=== PATIENT | female | born 1950 | race Caucasian/White ===

== ENCOUNTER 2017-03-29 00:20 | Outpatient (CLI) | payer MEDICARE, BC | END 2017-03-29 00:21 | disposition critical access hospital (66) | LOC: EMS 00:20 | PROVIDERS: ATTEND Surgery | DX: S49.91XA Unspecified injury of right shoulder and upper arm, initial encounter (principal); W10.9XXA Fall (on) (from) unspecified stairs and steps, initial encounter; Y92.019 Unspecified place in single-family (private) house as the place of occurrence of the external cause | CPT/HCPCS: A0425; A0427 ==

== ENCOUNTER 2017-03-29 00:44 | Emergency (ER) | payer MEDICARE, BC ==
[2017-03-29] MEDS ORDERED: fentaNYL 100 MCG/2 ML VIAL ONE ×2 (02:09→02:47)
[2017-03-29] MEDS ORDERED: fentaNYL 100 MCG/2 ML VIAL IVP STA ×2 (02:10→02:50)
[2017-03-29] MEDS ORDERED: LORazepam 0.5 MG TABLET PO STA (02:14)
[2017-03-29] MEDS ORDERED: LORazepam 2 MG/ML SYRINGE ONE ×2 (02:16→02:47)
--- NOTE | 2017-03-29 02:19 | ED Physician Documentation ---
PD HPI UPPER EXT INJURY - Stated complaint Stated Complaint: SHOULDER PN/GLF - Chief complaint Chief Complaint: Trauma Ext - History obtained from History obtained from: Patient, Family, EMS - History of Present Illness Location: Right, Shoulder Type of injury: Fall Where injury occurred: Home Timing - onset: How many minutes ago (30) Timing - details: Abrupt onset Improved by: Immobilization Worsened by: Moving, Palpating Contributing factors: No: Anticoagulated, Prior ortho surgery Similar symptoms before: Has not had sx before Recently seen: Not recently seen - Additonal information Additional information: Patient is a 66 year old female who is presenting to the emergency department for shoulder pain after falling. patient was staying at a friends house that was unfamiliar to her. when patient got up to go to the bathroom she tripped and fell, landing on her right side hurting her shoulder. Patient is not on blood thinners and denies any loc. Review of Systems Constitutional: denies: Fever, Chills Eyes: denies: Loss of vision, Decreased vision Ears: denies: Ear pain, Drainage/discharge Nose: denies: Rhinorrhea / runny nose, Congestion, Epistaxis Throat: denies: Dental pain / toothache Cardiac: denies: Chest pain / pressure Respiratory: denies: Cough, Wheezing GI: denies: Abdominal Pain, Nausea, Vomiting : denies: Frequency, Hesitancy Skin: reports: Lesions, Abrasion (s). denies: Laceration (s) Musculoskeletal: reports: Extremity pain, Joint pain, Extremity swelling Neurologic: denies: Generalized weakness, Focal weakness, Numbness Psychiatric: denies: Depressed, Suicidal Immunocompromised: denies: Immunocompromised PD PAST MEDICAL HISTORY - Past Medical History Past Medical History: Yes Cardiovascular: Hypertension - Past Surgical History Past Surgical History: No - Present Medications Home Medications: Ambulatory Orders Medication Instructions Recorded Confirmed Atenolol 50 mg PO DAILY 03/29/17 03/29/17 - Allergies Allergies/Adverse Reactions: Allergies Allergy/AdvReac Type Severity Reaction Status Date / Time Sulfa (Sulfonamide Allergy Rash Verified 03/29/17 00:41 Antibiotics) - Social History Does the pt smoke?: No Smoking Status: Never smoker Does the pt drink ETOH?: Yes ETOH Use: Wine Does the pt have substance abuse?: No - Immunizations Immunizations are current?: Yes - POLST Patient has POLST: No PD ED PE NORMAL - Vitals Vital signs reviewed: Yes - HEENT HEENT: PERRL, Dentition benign - Neck Neck: Supple, no meningeal sign, No bony TTP - Cardiac Cardiac: RRR, No murmur - Respiratory Respiratory: No respiratory distress, Clear bilaterally - Abdomen Abdomen: Soft, Non tender, Other (obese) - Neuro Neuro: Alert and oriented X 3, Normal speech - Psych Psych: Normal mood, Normal affect PD ED PE EXPANDED - General General: Alert, In Pain - HEENT HEENT: Head injury (abrasion and hematoma right supra orbital area) - Extremities Extremities: Right shoulder (tenderness and deformity), Right elbow (ecchymosis , abrasion and swelling), Right forearm (tenderness and ecchymosis) Results - Vitals Vitals: Vital Signs - 24 hr 03/29/17 03/29/17 03/29/17 00:36 02:06 02:14 Temperature 37.2 C 36.1 C L Heart Rate 90 91 88 Respiratory 18 20 20 Rate Blood Pressure 156/87 H 164/88 H 164/88 H O2 Saturation 96 98 100 03/29/17 03/29/17 03/29/17 02:40 02:53 02:56 Temperature Heart Rate 75 76 69 Respiratory 20 18 16 Rate Blood Pressure 159/104 H 133/91 H 139/79 H O2 Saturation 96 97 98 03/29/17 03/29/17 03/29/17 03:03 03:06 03:16 Temperature Heart Rate 78 77 90 Respiratory 19 16 22 Rate Blood Pressure 147/80 H 139/78 H 149/85 H O2 Saturation 99 97 99 03/29/17 03/29/17 03/29/17 03:26 03:37 04:07 Temperature Heart Rate 95 96 94 Respiratory 19 23 14 Rate Blood Pressure 149/85 H 141/91 H 161/93 H O2 Saturation 100 100 100 Oxygen O2 Source Room air Oxygen Flow Rate 3 - Rads (name of study) forearm x-ray Radiology: Final report received (no acute fracture or dislocation) right elbow Radiology: Final report received (no acute fracture or dislocation) right shoulder Radiology: Final report received (anterior, inferior dislocation) right shoulder post Radiology: Final report received (reduced shoulder) Procedures - Reduction Body part reduced: Right, Shoulder Fracture or dislocation: Dislocation Anesthesia: Fentanyl, Other (ativan) Shoulder reduction technique: Scapular manipulation, Traction - counter tract Reduction aftercare: NV intact, Xray confirms reduction, Alignment improved, Sling, Patient tolerated well PD MEDICAL DECISION MAKING - ED course Complexity details: reviewed results, re-evaluated patient, considered differential, d/w patient, d/w family ED course: Patient was seen and examined at bedside. patient had been treated with 200mcg by ems. patient was sent for imaging. When patient returned from imaging patient was found to have a right dislocated shoulder. shoulder was reduced using fentanyl and ativan on the second attempt. patient tolerated treatment well. patient had no desaturation or drop in blood pressure. Patient required no further work up and was stable for discharge with outpatient follow up. Departure - Departure Disposition: 01 Home, Self Care Clinical Impression: Shoulder dislocation Condition: Good Instructions: ED Dislocation Shoulder Redu Follow-Up: Prashant Morgan MD [Provider Admit Priv/Credential] - As Needed Comments: Your symptoms today are being caused by a shoulder dislocation. It has been put back in place. You can wear the sling for comfort or activity over the next couple of days. You can expect to be more sore from the fall and have pain in multiple different areas over the next 48 hours. You can take motrin or tylenol as needed for pain. If your dislocations become more frequent you can follow up with Dr. Morgan whose number is listed above. You may return to the emergency department at any time for new, worsening or uncontrollable symptoms.
[2017-03-29] MEDS ORDERED: LORazepam 2 MG/ML SYRINGE IVP STA ×2 (02:33→02:50)
--- NOTE | 2017-03-29 02:38 | XRAY Preliminary Report ---
Exam: XR Shoulder 3 View RT IMPRESSION: Anterior-inferior dislocation of the humeral head relative to the glenoid with abducted p osition of the arm. No displaced fracture evident. [facility] SITE ID: [id number]
--- NOTE | 2017-03-29 02:39 | XRAY Preliminary Report ---
Exam: XR Elbow 3 View RT IMPRESSION: No acute osseous abnormality demonstrated. [facility] SITE ID: [id number]
--- NOTE | 2017-03-29 02:40 | XRAY Preliminary Report ---
Exam: XR Forearm RT IMPRESSION: No acute osseous abnormality demonstrated. [facility] SITE ID: [id number]
--- NOTE | 2017-03-29 02:40 | XRAY Report ---
EXAM: RIGHT SHOULDER RADIOGRAPHY EXAM DATE: 03/29/2017 02:20 AM. CLINICAL HISTORY: Fall, shoulder pain and deformity. COMPARISON: None. TECHNIQUE: 3 views. FINDINGS: Bones: Compromised exam due to difficulty with patient positioning. No evidence of displaced fracture . Joints: Anterior-inferior dislocation of the humeral head relative to the glenoid. Moderate AC joint degenerative change. Soft tissues: No significant evident abnormality. IMPRESSION: Anterior-inferior dislocation of the humeral head relative to the glenoid with abducted p osition of the arm. No displaced fracture evident. [facility] Referring Provider Line: [phone] SITE ID: [id number]
--- NOTE | 2017-03-29 02:41 | XRAY Report ---
EXAM: RIGHT ELBOW RADIOGRAPHY EXAM DATE: 03/29/2017 02:20 AM. CLINICAL HISTORY: Fall, right upper extremity pain COMPARISON: None. TECHNIQUE: 3 views. FINDINGS: Compromised exam due to difficulty with positioning. Reduced sensitivity as a result. Bones: No acute displaced fractures or bone lesions. Joints: No dislocation. Soft Tissues: No significant soft tissue swelling. IMPRESSION: No acute osseous abnormality demonstrated. [facility] Referring Provider Line: [phone] SITE ID: [id number]
--- NOTE | 2017-03-29 02:43 | XRAY Report ---
EXAM: RIGHT FOREARM RADIOGRAPHY EXAM DATE: 03/29/2017 02:20 AM. CLINICAL HISTORY: Fall, pain COMPARISON: None. TECHNIQUE: 2 views. FINDINGS: Compromised exam due to difficulty with positioning. Reduced sensitivity as a result. Bones: No acute displaced fractures or bone lesions. Joints: No subluxations. Soft Tissues: No soft tissue swelling. IMPRESSION: No acute osseous abnormality demonstrated. [facility] Referring Provider Line: [phone] SITE ID: [id number]
--- NOTE | 2017-03-29 03:53 | XRAY Preliminary Report ---
Exam: XR Shoulder 1 View RT IMPRESSION: Persistent inferior anterior dislocation. [facility] SITE ID: [id number]
--- NOTE | 2017-03-29 03:56 | XRAY Report ---
EXAM: RIGHT SHOULDER RADIOGRAPHY EXAM DATE: 03/29/2017 03:28 AM. CLINICAL HISTORY: Reduction attempt. COMPARISON: Comparison made with exam acquired earlier today at 0136 hours. TECHNIQUE: Single view. FINDINGS/IMPRESSION: Persistent inferior anterior dislocation. [facility] Referring Provider Line: [phone] SITE ID: [id number]
--- NOTE | 2017-03-29 04:10 | XRAY Preliminary Report ---
Exam: XR Shoulder 1 View RT IMPRESSION:There is congruent alignment of the glenoid and humeral head. No displaced fracture seen a t this time on this single image. [facility] SITE ID: [id number]
--- NOTE | 2017-03-29 04:13 | XRAY Report ---
EXAM: RIGHT SHOULDER RADIOGRAPHY EXAM DATE: 03/29/2017 03:48 AM. CLINICAL HISTORY: Shoulder reduction. COMPARISON: Multiple prior exam from earlier today. TECHNIQUE: 1 view. FINDINGS/IMPRESSION:There is congruent alignment of the glenoid and humeral head. No displaced fractu re seen at this time on this single image. [facility] Referring Provider Line: [phone] SITE ID: [id number]
[2017-03-29 04:21] VITALS: BP 151/91
== END 2017-03-29 04:25 | disposition home or self-care (01) ==
LOC: ED 00:44
DX: S43.014A Anterior dislocation of right humerus, initial encounter (principal); S00.211A Abrasion of right eyelid and periocular area, initial encounter; S50.311A Abrasion of right elbow, initial encounter; S00.83XA Contusion of other part of head, initial encounter; S50.11XA Contusion of right forearm, initial encounter; W10.9XXA Fall (on) (from) unspecified stairs and steps, initial encounter; Y93.89 Activity, other specified; Y92.009 Unspecified place in unspecified non-institutional (private) residence as the place of occurrence of the external cause; I10 Essential (primary) hypertension
CPT/HCPCS: 23650; 73020; 73030; 73080; 73090; 96374; 96375; 96376; 99284; 99285; J2060

== ENCOUNTER 2017-05-11 08:26 | Outpatient (CLI) | payer MEDICARE, BC | END 2017-05-11 08:27 | disposition home or self-care (01) | LOC: DI 08:26 | PROVIDERS: ATTEND Nurse Practitioner Gerontology | DX: G89.11 Acute pain due to trauma (principal) ==

== ENCOUNTER 2018-10-24 16:17 | Emergency (ER) | payer MEDICARE, BC ==
[2018-10-24] MEDS ORDERED: oxyCODONE 5 MG TABLET PO STA (16:46)
[2018-10-24] MEDS ORDERED: LIDOCAINE PATCH 5% TOP STA (16:46)
[2018-10-24] MEDS ORDERED: KETOROLAC 60 MG/2 ML VIAL IM STA (16:46)
[2018-10-24] MEDS ORDERED: CYCLOBENZAPRINE 10 MG TABLET PO STA (16:46)
--- NOTE | 2018-10-24 16:50 | ED Physician Documentation ---
History of Present Illness - Stated complaint Stated Complaint: LOW BACK PX - Chief complaint Chief Complaint: Back Pain - Additonal information Additional information: hx from pt 68 female hx back spasms to ED with several days of mid left sided back pain and spasm no injury no fever no recent dental work or surgery no IV IM meds drugs no chest pain no abd pain no dysuria hematuria or incontin no numbness or weakness including no saddle anesthesia Review of Systems Constitutional: denies: Fever, Chills Cardiac: denies: Chest pain / pressure Respiratory: denies: Dyspnea GI: denies: Abdominal Pain, Nausea, Vomiting : denies: Dysuria, Incontinent, Hematuria Skin: denies: Rash Musculoskeletal: reports: Back pain Neurologic: denies: Focal weakness, Numbness Endocrine: denies: Easy bruising / bleeding Immunocompromised: denies: Immunocompromised PD PAST MEDICAL HISTORY - Past Medical History Past Medical History: Yes Cardiovascular: Hypertension - Past Surgical History 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 - Present Medications Home Medications: Ambulatory Orders Medication Instructions Recorded Confirmed Cyclobenzaprine [Flexeril] 10 mg PO TID PRN #20 tablet 10/24/18 Ibuprofen [Motrin] 400 mg PO TIDWM PRN #12 tablet 10/24/18 Lidocaine Patch 5% [Lidoderm Patch] 1 patch TOP DAILY PRN #10 patch 10/24/18 - Allergies Allergies/Adverse Reactions: Allergies Allergy/AdvReac Type Severity Reaction Status Date / Time Sulfa (Sulfonamide Allergy Rash Verified 10/24/18 16:26 Antibiotics) - Social History Does the pt smoke?: No Smoking Status: Never smoker Does the pt drink ETOH?: Yes ETOH Use: Liquor Does the pt have substance abuse?: No - Immunizations Immunizations are current?: No Immunizations: TDAP >10years/unknown - POLST Patient has POLST: No PD ED PE NORMAL - Vitals Vital signs reviewed: Yes - Neck Neck: Supple, no meningeal sign - Cardiac Cardiac: RRR - Respiratory Respiratory: No respiratory distress, Clear bilaterally - Abdomen Abdomen: Soft, Non tender, Other (no pulsatile mass) - Back Back: No spinal TTP, Other (L mid back soft tissue TTP, red from heating pad but no other rash, no focal spine TTP or swelling, fairly good ROM though) - Neuro Neuro: Other (denies saddle anesthesia, hip flexion knee extension foot dorsi plantar flexion great toe ext all 5/5, nl sensation, no clonus, patellar DTRs 1+/4 [place], neg SLR [place]) Results - Vitals Vitals: Vital Signs - 24 hr 10/24/18 10/24/18 16:23 18:36 Temperature 36.7 C Heart Rate 98 70 Respiratory 18 16 Rate Blood Pressure 185/107 H 183/102 H O2 Saturation 97 98 Oxygen O2 Source Room air - Labs Labs: Laboratory Tests 10/24/18 17:06 Urine Color YELLOW Urine Clarity CLEAR Urine pH 6.0 Ur Specific [place] 1.010 Urine Protein NEGATIVE Urine Glucose (UA) NEGATIVE Urine Ketones NEGATIVE Urine Occult Blood TRACE-LYSE Urine Nitrite NEGATIVE Urine Bilirubin NEGATIVE Urine Urobilinogen 0.2 (NORMAL) Ur Leukocyte Esterase NEGATIVE Ur Microscopic Review NOT INDICATED Urine Culture Comments NOT INDICATED - Rads (name of study) retroperitoneal sono Radiology: Prelim report reviewed (grossly normal) PD MEDICAL DECISION MAKING - ED course ED course: pt with back pain and spasms and hx same according to her TTP soft tissue L low thoracic region but fairly good ROM which would be atypical of mm spasm no fever or risk factors for epidural abscess no abd pain no CP will check UA for infection or blood / renal colic and abd sono to eval for AAA if neg, given pt hx of same, will dc with symptomatic meds Departure - Departure Disposition: 01 Home, Self Care Clinical Impression: Back pain Qualifiers: Back pain location: low back pain Chronicity: acute Back pain laterality: left Sciatica presence: without sciatica Qualified Code(s): M54.5 - Low back pain Condition: Good Instructions: ED Neck Back Pain General Follow-Up: Catherine Morrow ARNP [Primary Care Provider] - Prescriptions: Cyclobenzaprine [Flexeril] 10 mg PO TID PRN #20 tablet PRN Reason: Spasms Ibuprofen [Motrin] 400 mg PO TIDWM PRN #12 tablet PRN Reason: Pain Lidocaine Patch 5% [Lidoderm Patch] 1 patch TOP DAILY PRN #10 patch PRN Reason: pain Comments: The urine tests did not show bacteria to suggest an infection no blood to suggest a kidney stone The ultrasound did not an aneurysm of the aorta. So the pain is likely from the muscles in your back as you originally thought. I have prescribed medication to help ease the pain. Please follow up with your PMD if not improving by Saturday Return to the ER sooner if worse in any way over the weekend And please have your PMD recheck your blood pressure when you are feeling better - it was high today
[2018-10-24 17:14] LABS: BILIRUBIN,URINE NEGATIVE (NEGATIVE); GLUCOSE, URINE (UA) NEGATIVE (NEGATIVE); KETONES,URINE (UA) NEGATIVE (NEGATIVE); LEUKOCYTE ESTERASE, URINE NEGATIVE (NEGATIVE); NITRITE,URINE NEGATIVE (NEGATIVE); OCCULT BLOOD,URINE TRACE-LYSE (NEGATIVE); PROTEIN,URINE NEGATIVE (NEGATIVE); UROBILINOGEN,URINE 0.2 (NORMAL) E.U./dL (NORMAL)
[2018-10-24 17:33] LABS: CLARITY,URINE CLEAR (CLEAR)
[2018-10-24 18:36] VITALS: BP 183/102
--- NOTE | 2018-10-24 19:03 | Ultrasound Report ---
Reason: back pain, eval aorta Procedure Date: 10/24/2018 Accession Number: [id number] / [id number] Procedure: US - Retroperitoneal Limited CPT Code: FULL RESULT: EXAM: AORTIC DOPPLER ULTRASOUND EXAM DATE: 10/24/2018 06:25 PM. CLINICAL HISTORY: Back pain, evaluate aorta. COMPARISON: None. TECHNIQUE: Real-time sonographic imaging of retroperitoneal vascular structures, including color-flow, Doppler flow and spectral analysis was performed by the cushion maker. Multiple support representative static images were saved for review. FINDINGS: Aorta: The abdominal aorta was adequately visualized. No evidence for abdominal aortic aneurysm. Aorta: Proximal: Sagittal AP: 2.8 cm. Mid: Transverse: 2 cm. Distal: Transverse: 2.1 x 1.7 cm. Caliber WNL: Yes. Plaque visualized: No. Iliacs: Right Iliac: Transverse: 1.7 x 1.2 cm. Left Iliac: Transverse: 1.2 x 1.2 cm. Iliac Vessels: The visualized proximal common iliac arteries are normal in caliber. Other: None. IMPRESSION: No abdominal aortic aneurysm. [facility]
== END 2018-10-24 18:57 | disposition home or self-care (01) ==
LOC: ED 16:17
DX: M54.5 Low back pain (principal); I10 Essential (primary) hypertension
CPT/HCPCS: 76775; 81003; 96372; 99283; A9270; 81001; 87086

== ENCOUNTER 2019-03-22 09:34 | Emergency (ER) | payer MEDICARE, BC ==
[2019-03-22 09:40] VITALS: BP 199/92
[2019-03-22] MEDS ORDERED: KETOROLAC 60 MG/2 ML VIAL IM STA (09:59)
[2019-03-22] MEDS ORDERED: CYCLOBENZAPRINE 10 MG TABLET PO STA (10:00)
--- NOTE | 2019-03-22 10:07 | ED Physician Documentation ---
PD HPI BACK PAIN - Stated complaint Stated Complaint: MUSCLE SPASMS - Chief complaint Chief Complaint: Back Pain - History obtained from History obtained from: Patient, Family - History of Present Illness Timing - onset: How many weeks ago (1) Timing - duration: Weeks (1) Timing - details: Gradual onset Pain level max: 9 Pain level now: 8 Location: Mid, Lower, Right, Left Quality: Pain, Spasm, Similar to prior episodes Associated symptoms: No: Fever, Weakness, Numbness, Incontinent of urine, Unable to urinate, Hematuria, Incontinent of stool Improves with: Rest Worsened by: Movement Contributing factors: No: Trauma, Anticoagulated, Cancer, IVDA Similar symptoms before: Diagnosis (chronic back pain and spasms) Recently seen: Clinic (walk in clinic, received robaxin, did not help) Review of Systems Constitutional: denies: Fever, Chills : denies: Dysuria, Frequency, Hesitancy, Hematuria Skin: denies: Rash Musculoskeletal: denies: Neck pain PD PAST MEDICAL HISTORY - Past Medical History Cardiovascular: Hypertension - Past Surgical History 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 - Present Medications Home Medications: Ambulatory Orders Medication Instructions Recorded Confirmed Cyclobenzaprine [Flexeril] 10 mg PO TID PRN #20 tablet 10/24/18 Ibuprofen [Motrin] 400 mg PO TIDWM PRN #12 tablet 10/24/18 Lidocaine Patch 5% [Lidoderm Patch] 1 patch TOP DAILY PRN #10 patch 10/24/18 Cyclobenzaprine [Flexeril] 10 mg PO TID PRN #20 tablet 03/22/19 Meloxicam [Mobic] 15 mg PO DAILY PRN #20 tablet 03/22/19 - Allergies Allergies/Adverse Reactions: Allergies Allergy/AdvReac Type Severity Reaction Status Date / Time Sulfa (Sulfonamide Allergy Rash Verified 03/22/19 09:40 Antibiotics) - Social History Does the pt smoke?: No Smoking Status: Never smoker Does the pt drink ETOH?: Yes Does the pt have substance abuse?: No - Immunizations Immunizations are current?: No Immunizations: TDAP >10years/unknown - POLST Patient has POLST: No PD ED PE NORMAL - Vitals Vital signs reviewed: Yes - General General: Alert and oriented X 3, No acute distress, Well developed/nourished - HEENT HEENT: Moist mucous membranes - Neck Neck: Supple, no meningeal sign, No bony TTP - Cardiac Cardiac: RRR - Respiratory Respiratory: No respiratory distress, Clear bilaterally - Abdomen Abdomen: Soft, Non tender, Non distended - Back Back: No spinal TTP, Other (Paraspinal muscle spasm, left greater than right low thoracic and low lumbar. Reproduces her pain.) - Derm Derm: Warm and dry, No rash - Extremities Extremities: No calf tenderness / cord - Neuro Neuro: Alert and oriented X 3, No motor deficit, No sensory deficit, Other (Normal bilateral lower extremity patellar and ankle jerk reflexes. Normal great toe extension bilaterally. no saddle anesthesia) Results - Vitals Vitals: Vital Signs - 24 hr 03/22/19 09:39 Temperature 36.6 C Heart Rate 103 H Respiratory 18 Rate Blood Pressure 199/92 H O2 Saturation 95 Oxygen O2 Source Room air PD MEDICAL DECISION MAKING - ED course Complexity details: reviewed results, re-evaluated patient, considered differential (No cauda equina, no spinal epidural abscess, no fracture, no aortic dissection or evidence of aneursym rupture), d/w patient ED course: 68-year-old female with chronic back pain, increased spasms recently. Flexeril is worked in the past. Will trial her on this. We will also prescribe meloxicam for home. She is well-appearing, nontoxic. Afebrile. No loss of bowel or bladder control. No evidence of cauda equina or epidural abscess. No midline tenderness. No evidence of aortic dissection. Patient counseled regarding signs and symptoms for which I believe and urgent re-evaluation would be necessary. Patient with good understanding of and agreement to plan and is comfortable going home at this time This document was made in part using voice recognition software. While efforts are made to proofread this document, sound alike and grammatical errors may occur. Departure - Departure Disposition: 01 Home, Self Care Clinical Impression: Back muscle spasm Condition: Good Instructions: ED Spasm Back No Trauma Follow-Up: Catherine Morrow ARNP [Primary Care Provider] - Within 1 week Prescriptions: Cyclobenzaprine [Flexeril] 10 mg PO TID PRN #20 tablet PRN Reason: Spasms Meloxicam [Mobic] 15 mg PO DAILY PRN #20 tablet PRN Reason: pain Comments: Use the medications as prescribed. Return if she worsens. Follow-up with your doctor for further care. She may benefit from an MRI if she has not had one recently for her recurrent spasms.
== END 2019-03-22 10:11 | disposition home or self-care (01) ==
LOC: ED 09:34
DX: M62.830 Muscle spasm of back (principal); M54.5 Low back pain; M54.6 Pain in thoracic spine; G89.29 Other chronic pain; I10 Essential (primary) hypertension
CPT/HCPCS: 96372; 99283; A9270